=== PATIENT | female | born 1960 | race Hispanic/Latino ===

== ENCOUNTER 2020-04-26 08:29 | Outpatient (CLI) | payer BC ==
--- NOTE | 2020-04-26 10:45 | ULT ---
HEPATIC ULTRASOUND WITH COLOR AND SPECTRAL DOPPLER IMAGING: HISTORY: Abnormal LFTs. FINDINGS: Evidence for hepatomegaly with some heterogeneous liver echogenicity, evidence for nonspecific hepati c parenchymal process. The gallbladder demonstrates no evidence of gallstones, wall thickening, peg a, or pericholecystic fluid. Common bile duct 0.4 cm. No splenomegaly. Visualized pancreas is unre markable. Hepatic and portal venous flow is antegrade. IMPRESSION: Minimal hepatomegaly with some coarse increased echogenicity, evidence for nonspecific hepatic parenc hymal process. Antegrade hepatic and portal venous flow. No other significant acute process. POS: [facility]
== END 2020-04-26 08:30 | disposition home or self-care (01) ==
LOC: BICULT 08:29
PROVIDERS: ATTEND Internal Medicine Gastroenterology
DX: R10.30 Lower abdominal pain, unspecified (principal); R94.5 Abnormal results of liver function studies; R16.0 Hepatomegaly, not elsewhere classified; R93.2 Abnormal findings on diagnostic imaging of liver and biliary tract
CPT/HCPCS: 36415; 76705; 80053; 82103; 82104; 82105; 82390; 82728; 83516; 83540; 83550; 85025; 85610; 86038; 86225; 86706; 86708; 86803; 87340

== ENCOUNTER 2020-08-30 09:53 | Outpatient (CLI) | payer BC ==
--- NOTE | 2020-08-30 11:11 | CT ---
CT ABDOMEN AND PELVIS WITH IV CONTRAST 08/30/2020 CLINICAL INFORMATION: Abnormal liver function tests and lower abdominal pain. COMPARISON: None. Technique: Multiple contiguous axial CT images are obtained through the abdomen and pelvis with IV contrast. Cor onal reformatted images are provided. FINDINGS: Lower Chest: A 4 mm pulmonary nodule is seen in the right middle lobe. There is atelectasis seen depe ndently at the right lung base. Left lung base is clear. Vessels: Incidental note is made of a circumaortic left renal vein. Minimal vascular calcifications a re seen in the abdominal aorta. The abdominal aorta is normal in caliber. Abdomen: Portal vein:Patent Gallbladder: Within normal limits for CT imaging. Liver: Enlarged in craniocaudal dimensions measuring 19 cm. No focal hepatic lesion is seen. Spleen: within normal limits. Pancreas: within normal limits. Adrenals: within normal limits. Kidneys: within normal limits. Bowel: Evidence of colonic diverticulosis. Loops of small bowel are normal in caliber. Appendix: The appendix is visualized and normal in caliber. Peritoneum: No ascites or free air; no fluid collection. Mesentery and Retroperitoneum: No enlarged mesenteric or retroperitoneal lymph nodes. Abdominal Wall: within normal limits. Pelvis: Reproductive Organs: No pelvic masses. Bladder: Incompletely distended but grossly within normal limits. Bones: Postoperative and degenerative changes lumbar spine. IMPRESSION: 1. Nonspecific 4 mm pulmonary nodule right middle lobe. 2. Enlargement of the liver in craniocaudal dimensions measuring 19 cm. Liver otherwise has a normal CT appearance. 3. Colon diverticulosis. 4. No acute findings in the abdomen or pelvis.
[2020-08-30] MEDS ORDERED: Iopamidol-370 76% 500 ML 1 ML ONE (13:19)
== END 2020-08-30 09:54 | disposition home or self-care (01) ==
LOC: BICCT 09:53
PROVIDERS: ATTEND Internal Medicine Gastroenterology
DX: R94.5 Abnormal results of liver function studies (principal); R10.30 Lower abdominal pain, unspecified; R91.1 Solitary pulmonary nodule; K57.30 Diverticulosis of large intestine without perforation or abscess without bleeding; R16.0 Hepatomegaly, not elsewhere classified
CPT/HCPCS: 74177

== ENCOUNTER 2024-10-24 13:19 | Outpatient (CLI) | payer BC | END 2024-10-24 13:20 | disposition home or self-care (01) | LOC: BICRAD 13:19 | PROVIDERS: ATTEND Chiropractor | DX: M25.462 Effusion, left knee (principal); M25.562 Pain in left knee ==